=== PATIENT | female | born 1970 ===

== ENCOUNTER 2017-01-01 23:31 | Emergency (ER) | payer OTHER ==
[~2017-01-01 23:31] MED LIST: BENTYL20 MG PO
== END 2017-01-02 00:02 | disposition left against medical advice (07) ==
LOC: CED 23:31
DX: Z53.21 Procedure and treatment not carried out due to patient leaving prior to being seen by health care provider (principal)

== ENCOUNTER 2017-05-01 08:16 | Emergency (ER) | payer OTHER ==
[~2017-05-01] VITALS: Ht 157.5 cm; Wt 78.9 kg
--- NOTE | ~2017-05-01 | CR181 ---
[facility] A Service of [facility] & [facility] RADIOLOGY TEXT RESULTS PATIENT: LORRI TORRES LOCATION: [facility] : 66 UNIT #: [id number] AGE: [address]: Tian Todd MD SEX: F ORDER DR: [id number] [facility] [address] [place], [place] [address] [id number] E MR#: [id number] Acc #: [id number] NAME: LORRI TORRES. : 1970 SEX: F STUDY DATE/TIME: 05/01/2017 10:33 UNIT: [facility] ROOM: STUDY DESCRIPTION: CR Lumbar Spine 2 or 3 Views Attending Physician: Tian Todd M.D. Ordering Physician: Tian Todd M.D. Primary Care Physician: [facility] REPORT This report is preliminary unless electronic signature is present EXAM Lumbar spine, 3 view series. INDICATIONS Pain in left hip and lower back after fall today. FINDINGS AP and lateral projections of the lumbar segment show good mineralization of both anterior and posterior elements. They are all anatomically normal without indication of fracture, dislocation, or malignant change of a sclerotic or lytic type. There is no congenital defect noted. The sacroiliac joints are normal. IMPRESSION Normal lumbar spine. Dictated by... Shamar Garica M.D. THIS IS AN ELECTRONICALLY VERIFIED REPORT Shamar Garcia M.D. at 05/02/2017 9:37 PM MONICA/rosmery TD: 05/02/2017 00:26 JOB #: [id number] MEDICAL IMAGING REPORT Page 1 of 1 COPY
--- NOTE | ~2017-05-01 | CR206 ---
[facility] A Service of [facility] & [facility] RADIOLOGY TEXT RESULTS PATIENT: LORRI TORRES LOCATION: [facility] : 66 UNIT #: [id number] AGE: [address]: Tian Todd MD SEX: F ORDER DR: [id number] [facility] [address] [place], [place] [address] [id number] E MR#: [id number] Acc #: [id number] NAME: LORRI TORRES. : 1970 SEX: F STUDY DATE/TIME: 05/01/2017 10:37 UNIT: [facility] ROOM: STUDY DESCRIPTION: CR Pelvis 1 or 2 Views Attending Physician: Tian Todd M.D. Ordering Physician: Tian Todd M.D. Primary Care Physician: [facility] MEDICAL IMAGING REPORT This report is preliminary unless electronic signature is present EXAM AP pelvis HISTORY Pain today after fall. Pain in pelvis. FINDINGS An AP view of the pelvis was obtained. There is no comparison. The bones are normal. The SI joints are normal. There is no fracture. IMPRESSION Normal AP pelvis. Dictated by... Shamar Garcia M.D. THIS IS AN ELECTRONICALLY VERIFIED REPORT Shamar Garcia M.D. at 05/02/2017 9:35 PM MONICA/sushila TD: 05/02/2017 00:32 JOB #: [id number] MEDICAL IMAGING REPORT Page 1 of 1 COPY
--- NOTE | ~2017-05-01 | CR72 ---
[facility] A Service of [facility] & [facility] RADIOLOGY TEXT RESULTS PATIENT: LORRI TORRES LOCATION: [facility] : 66 UNIT #: [id number] AGE: [address]: Tian Todd MD SEX: F ORDER DR: [id number] [facility] [address] [place], [place] [address] [id number] E MR#: [id number] Acc #: [id number] NAME: LORRI TORRES. : 1970 SEX: F STUDY DATE/TIME: 05/01/2017 10:39 UNIT: [facility] ROOM: STUDY DESCRIPTION: CR Chest Single View Portable Attending Physician: Tian Todd M.D. Ordering Physician: Tian Todd M.D. [facility] REPORT This report is preliminary unless electronic signature is present EXAM Portable chest. INDICATIONS Syncope. Today patient fell. FINDINGS Portable view of the chest is obtained. The heart size and vascularity are normal. The lungs are clear. Comparison study of 05/02/2014. IMPRESSION No active disease. Dictated by... Shamar Garcia M.D. THIS IS AN ELECTRONICALLY VERIFIED REPORT Shamar Garcia M.D. at 05/02/2017 9:35 PM MONICA/rosmery TD: 05/02/2017 00:31 JOB #: [id number] MEDICAL IMAGING REPORT Page 1 of 1 COPY
--- NOTE | ~2017-05-01 | EKG ---
PATIENT: LORRI TORRES UNIT #: [id number] Ventricular Rate: 83 BPM Atrial Rate: 83 BPM P-R Interval: 120 ms QRS Duration: 84 ms Q-T Interval: 346 ms QTC Calculation(Bezet): 406 ms P Spurgeon: 40 degrees Calculated R Spurgeon: 46 degrees Calculated T Spurgeon: 32 degrees Diagnosis Line: Normal sinus rhythm Diagnosis Line: Normal ECG Diagnosis Line: When compared with ECG of 02-MAY-2014 11:27, Diagnosis Line: No significant change was found Diagnosis Line: Confirmed by LUZ KEE MD ([id number]) on Diagnosis Line: 05/03/2017 8:55:23 AM INTERPRETING MD: VIDHYA OWENS
[2017-05-01 09:15] LABS: BASOPHIL# 0.1 X10e3 (0-0.3); EOSINOPHIL# 0.3 X10e3 (0-0.7); EOSINOPHIL% 2.7 % (0.0-7.0); HEMOGLOBIN 12.7 gm/dL (12.0-16.0); LYMPHOCYTE# 2.5 X10e3 (1.0-3.5); LYMPHOCYTE% 23.6 % (17.0-45.0); MEAN CELL VOLUME 75.7 FL (83-96); MEAN CORPUSCULAR HEMOGLOBIN 25.2 PG (28-34); MEAN CORPUSCULAR HGB CONC 33.4 g/dL (30-36); MEAN PLATELET VOLUME 8.9 FL (6.5-11.5); MONOCYTE# 0.8 X10e3 (0-1.0); MONOCYTE% 7.9 % (3.0-12.0); NEUTROPHIL# 6.9 X10e3 (1.5-7.1); NEUTROPHIL% 64.8 % (40-75); PLATELET COUNT 381 X10e3 (140-420); RED BLOOD COUNT 5.02 X10e (3.90-5.30); WHITE BLOOD COUNT 10.6 X10e3 (4.0-10.5)
[2017-05-01 09:19] LABS: DIFF IND NO
[2017-05-01 09:25] LABS: POC - CKMB 1.6 ng/mL (0.0-7.9); POC - TROPONIN <0.05 ng/mL (<=0.05)
[2017-05-01 09:57] LABS: ALKALINE PHOSPHATASE 85 U/L (32-92); ALT (SGPT) 20 U/L (10-40); AST (SGOT) 22 U/L (10-42); BILIRUBIN,TOTAL 0.3 mg/dL (0.2-2.0); BLOOD UREA NITROGEN 9 mg/dL (9-23); BUN/CREATININE RATIO 12.85; CALCIUM SERUM 8.8 mg/dL (8.4-10.2); CARBON DIOXIDE 25 mmol/L (22-31); CHLORIDE 106 mmol/L (100-111); CREATININE SERUM 0.7 mg/dL (0.6-1.4); GLOM FILT RATE Estimated 102.5 mL/min (>60); GLUCOSE FASTING 105 mg/dL (70-110); POTASSIUM 3.6 mmol/L (3.5-5.1); PROTEIN TOTAL SERUM 7.2 g/dL (6.0-8.3); SODIUM 139 mmol/L (135-145)
[2017-05-01 09:59] LABS: BILIRUBIN, DIRECT <0.1 mg/dL (0.0-0.2); BILIRUBIN,INDIRECT 0.2 mg/dL (0.0-0.9)
[2017-05-01 11:18] LABS: POC - CKMB 1.2 ng/mL (0.0-7.9); POC - TROPONIN <0.05 ng/mL (<=0.05)
== END 2017-05-01 11:36 | disposition home or self-care (01) ==
LOC: CED 08:16
PROVIDERS: Emergency Medicine
DX: S39.012A Strain of muscle, fascia and tendon of lower back, initial encounter (principal); S30.0XXA Contusion of lower back and pelvis, initial encounter; R55 Syncope and collapse; I10 Essential (primary) hypertension; F17.200 Nicotine dependence, unspecified, uncomplicated; W18.30XA Fall on same level, unspecified, initial encounter; Y92.009 Unspecified place in unspecified non-institutional (private) residence as the place of occurrence of the external cause
CPT/HCPCS: 36415; 71010; 72100; 72170; 80048; 80076; 82553; 84484; 85025; 93005; 96374; 96376; 99284; J1170